=== PATIENT | male | born 1960 | race Caucasian/White ===

== ENCOUNTER 2017-02-19 16:03 | Outpatient (CLI) | payer BC ==
[2017-02-19 17:17] LABS: #Eosinphils 0.1 thou/uL (0.0-0.7); #Lymphocytes 2.1 thou/uL (1.20-3.40); #Monocytes 0.8 thou/uL (0.11-0.59); #Neutrophils 9.3 thou/uL (1.40-6.50); %Basophils 0.1 % (0.0-1.0); %Eosinophils 0.6 % (0.0-10.0); %Lymphocytes 16.9 % (21.0-51.0); %Monocytes 6.6 % (0.0-10.0); Hematocrit 55.6 % (42.0-52.0); Mean Platelet Volume 7.1 fL (7.4-10.4); Red Blood Cell (RBC) Count 6.13 mill/uL (4.70-6.10); White Blood Cell (WBC) Count 12.3 thou/uL (4.8-10.8)
[2017-02-19 17:39] LABS: Anion Gap 13 mmol/L (10-20); BUN (Urea Nitrogen) 12 mg/dL (8.4-25.7); Calc. Creatinine Clearance 0 mL/min (70-130); Calcium 9.5 mg/dL (7.8-10.44); Carbon Dioxide 23 mmol/L (22-29); Chloride 105 mmol/L (98-107); Estimated GFR-MDRD 63
== END 2017-02-19 16:04 | disposition home or self-care (01) ==
LOC: LABBT 16:03
PROVIDERS: ATTEND Surgery
DX: Z01.812 Encounter for preprocedural laboratory examination (principal); K42.9 Umbilical hernia without obstruction or gangrene
CPT/HCPCS: 80048; 85025

== ENCOUNTER → 2017-02-26 | Day surgery (SDC) | payer BC ==
[2017-02-19 16:22] VITALS: BMI 27.2
[~2017-02-26] MED LIST: Bupivacaine/Epinephrine 0.25% 30 ML VIAL ONE; CEFAZOLIN/Water 2 GM/20 ML SYRINGE ONE; Dexamethasone 20 MG/5 ML VIAL ONE; Fentanyl 100 MCG/2 ML VIAL ONE; Ketorolac Tromethamine 30 MG/ML VIAL ONE; Lidocaine 1% PF 5 ML VIAL ONE; Midazolam HCl 2 mg/2 ml Vial ONE; Ondansetron HCl/PF 4 MG/2 ML Vial ONE; PROPOFOL 200 MG/20 ML VIAL ONE
--- NOTE | 2017-02-27 13:26 | OP ---
DATE OF PROCEDURE: 02/26/2017 PREOPERATIVE DIAGNOSIS: Umbilical hernia. POSTOPERATIVE DIAGNOSIS: Umbilical hernia. PROCEDURES PERFORMED: Umbilical hernia repair with mesh, Parietex ventral patch small. SURGEON: Shon Mondragon M.D. ANESTHESIA: General. ESTIMATED BLOOD LOSS: Minimal. COMPLICATIONS: None. SPECIMEN: None. FINDINGS: Umbilical hernia. TECHNIQUE: The patient was taken to the operating room and placed supine on the table. After genera l anesthetic was obtained, the abdomen was shaved, prepped and draped in a sterile fashion. A curved incision was made below the umbilicus. Cautery was used to dissect down to and amputate the umbilic al stalk exposing the umbilical defect. The edges of the defect were freshened. The preperitoneal s pace was bluntly dissected through the umbilical defect. The Parietex small ventral patch mesh was b rought into the sterile field. The underlay was placed below the fascia and the tails were used to p ull it up flat against the posterior abdominal wall. This occurred on top, it was sewn via U stitch of permanent braided suture to all sides. The tails were then cut. The fascia was closed loosely ov er the mesh using permanent braided suture. Umbilical stalk was tacked back down using 3-0 Vicryl. Local anesthetic was applied and the wound was irrigated. Skin was closed with running 4-0 Monocryl and Dermabond. The patient went to recovery in stable condition. All instrument counts, needle coun ts, and lap counts were correct.
== END ==
LOC: SDC 08:32
PROVIDERS: ATTEND Surgery
PROC: 0WUF0JZ Supplement Abdominal Wall with Synthetic Substitute, Open Approach (ICD-10-PCS; principal; 2017-02-26)
DX: K42.9 Umbilical hernia without obstruction or gangrene (principal); I10 Essential (primary) hypertension; I48.0 Paroxysmal atrial fibrillation; E78.5 Hyperlipidemia, unspecified; I51.9 Heart disease, unspecified; Z79.01 Long term (current) use of anticoagulants; Z79.899 Other long term (current) drug therapy; Z98.52 Vasectomy status; Z90.89 Acquired absence of other organs; Z98.890 Other specified postprocedural states
CPT/HCPCS: J1100; J1885; J2001; J2250; J2405; J2704; J3010

== ENCOUNTER 2017-11-16 07:02 | Outpatient (CLI) | payer BC ==
--- NOTE | 2017-11-16 08:57 | CT ---
CT ABDOMEN WITH AND WITHOUT IV CONTRAST CT PELVIS WITH AND WITHOUT IV CONTRAST: DATE: 11/16/17. HISTORY: Hematuria, unspecified type. Difficulty urinating with weak flow of urination. COMPARISON: None available. FINDINGS: The lung bases are clear. Mild degenerative changes are seen in the spine with mild osteoarthritis involving the sacroiliac della nts. No renal or ureteral calculi are seen bilaterally. The kidneys demonstrate a normal CT appearance bi laterally aside from minimal defect in the inferior pole left kidney which may be related to minimal scarring. No enhancing renal mass is seen. There is no hydronephrosis present. The urinary bladder is decompressed but otherwise does appear to be within normal limits. The liver, spleen, pancreas, and bilateral adrenal glands demonstrate a normal CT appearance. Mild vascular calcifications are seen in the abdominal aorta and involving the iliac arteries. Incid ental note is made of a retroaortic left renal vein. The appendix is visualized and normal in caliber. There is colonic diverticulosis. There is no free fluid, fluid collection, or lymphadenopathy seen in the abdomen or pelvis. There is minimal scarring anterior abdomen at the level of the umbilicus. Metallic density is seen in the vi sualized upper scrotum incompletely imaged or evaluated that probably represents surgical clip second bailey to prior surgery. IMPRESSION: 1. No renal or ureteral calculi are seen bilaterally, and there is no hydronephrosis or renal mass s een. 2. Colonic diverticulosis. POS: [facility]
[2017-11-16] MEDS ORDERED: Iopamidol 370 76% 100 ML VIAL ONE (11:43)
== END 2017-11-16 07:03 | disposition home or self-care (01) ==
LOC: SCSCT 07:02
PROVIDERS: ATTEND Urology
DX: R31.9 Hematuria, unspecified (principal); K57.30 Diverticulosis of large intestine without perforation or abscess without bleeding
CPT/HCPCS: 74178

== ENCOUNTER 2017-11-18 16:54 | Outpatient (CLI) | payer BC ==
[2017-11-18 17:29] LABS: Hemoglobin 16.8 g/dL (14.0-18.0); Mean Corpuscular HGB CONC 34.1 g/dL (32.0-36.0); Mean Corpuscular Hemoglobin 31.3 pg (27.0-31.0); Mean Corpuscular Volume 91.8 fL (78.0-98.0); Mean Platelet Volume 6.8 fL (7.4-10.4); Platelet Count 257 thou/uL (130-400); RBC Distribution Width 12.5 % (11.5-14.5); Red Blood Cell (RBC) Count 5.36 mill/uL (4.70-6.10); White Blood Cell (WBC) Count 8.3 thou/uL (4.8-10.8)
[2017-11-18 17:53] LABS: Anion Gap 13 mmol/L (10-20); BUN (Urea Nitrogen) 15 mg/dL (8.4-25.7); Calc. Creatinine Clearance 0 mL/min (70-130); Calcium 9.2 mg/dL (7.8-10.44); Carbon Dioxide 25 mmol/L (22-29); Chloride 105 mmol/L (98-107); Estimated GFR-MDRD 70; Glucose 79 mg/dL (70-105); Sodium 139 mmol/L (136-145)
== END 2017-11-18 16:55 | disposition home or self-care (01) ==
LOC: LABBT 16:54
PROVIDERS: ATTEND Urology
DX: Z01.818 Encounter for other preprocedural examination (principal); R31.0 Gross hematuria; E29.1 Testicular hypofunction; R39.12 Poor urinary stream; R39.15 Urgency of urination; R35.1 Nocturia; N40.1 Benign prostatic hyperplasia with lower urinary tract symptoms
CPT/HCPCS: 80048; 85027; 93005; 93010

== ENCOUNTER 2017-11-24 09:20 | Day surgery (SDC) | payer BC ==
[2017-11-18 17:15] VITALS: BMI 27.9
[2017-11-24] MEDS ORDERED: Fentanyl 100 MCG/2 ML VIAL ONE (11:17)
[2017-11-24] MEDS ORDERED: Levofloxacin 500 mg/D5W 100 ml Premix Bag ONE (11:37)
--- NOTE | 2017-11-24 12:00 | RAD ---
PA AND LATERAL CHEST: INDICATIONS: Preop evaluation. COMPARISON: None. FINDINGS: The lungs are clear. The cardiomediastinal silhouette is within normal limits. No acute osseous abn ormality is evident. IMPRESSION: No acute cardiopulmonary abnormality. POS: [facility]
--- NOTE | 2017-11-24 13:01 | OP ---
DATE OF PROCEDURE: 11/24/2017 PREOPERATIVE DIAGNOSIS: Urethral strictures. POSTOPERATIVE DIAGNOSIS: Minimal urethral strictures. SURGEON: Lakesha Rey M.D. ANESTHESIA: General with laryngeal mask airway. FINDINGS: Adequate placement of a 21-Dominican cystoscope without the need for optical internal urethro jas. DRAINS: 18 Dominican silicone. ESTIMATED BLOOD LOSS: No blood loss. COMPLICATIONS: No complications. SPECIMENS: None. INDICATIONS: The patient is a 57-year-old male who was seen in the office and undergoing a workup fo r his BPH which has responded well to alpha blockers. We are anticipating considering GreenLight las er vaporization of the prostate and for that reason, the concern for prior hematuria he had a cystosc opy in the office, but I was unable to place the camera past the sphincter either due to a tight sphi ncter and/or another stricture, so he was set up for this in the OR. The patient was brought into the room by Anesthesia, laid on the table in supine position. After rec eiving general anesthetic his legs were placed in lithotomy position and his perineum was prepped and draped in sterile fashion. Using a 21-Dominican cystoscope and a 30 degree lens, the urethra was trave rsed and there were multiple small or slight strictures that the scope was able to push through. The re was one that brought a film with it, so I waited to pass this one until I could get a wire along t he edge of the mucosal film so that it would follow the original plane and the wire helped aid the sc ope in the correct direction and then it was at the sphincter itself and there was no definitive stri cture required. It was just narrow and the scope was able to push through it as the wire had already going into the bladder and I followed the wire into the bladder itself. Trabeculations were noted, but the bladder was otherwise without lesions. The ureteral orifices were noted in normal position. The prostate did have bilateral hypertrophy and a little bit of an elevated neck, but was otherwise unremarkable. At this point, the wire was left in place. The cystoscope removed and an 18 Dominican si licone catheter was turned into a Councill and catheter placed over the wire with the wire removed an d then secured to gravity. The patient tolerated procedure well and was then awakened and transferre d to PACU in stable condition.
[2017-11-24] MEDS ORDERED: Ondansetron HCl/PF 4 MG/2 ML Vial ONE (14:40)
[2017-11-24] MEDS ORDERED: Dexamethasone 20 MG/5 ML VIAL ONE (14:40)
[2017-11-24] MEDS ORDERED: PROPOFOL 200 MG/20 ML VIAL ONE (14:40)
[2017-11-24] MEDS ORDERED: Lidocaine 1% PF 5 ML VIAL ONE (14:40)
== END 2017-11-24 13:53 | disposition home or self-care (01) ==
LOC: SDC 09:20
PROVIDERS: ATTEND Urology
PROC: 0T7D8ZZ Dilation of Urethra, Via Natural or Artificial Opening Endoscopic (ICD-10-PCS; principal; 2017-11-24)
DX: N35.9 Urethral stricture, unspecified (principal); I48.91 Unspecified atrial fibrillation; E78.5 Hyperlipidemia, unspecified; I10 Essential (primary) hypertension; Z79.899 Other long term (current) drug therapy
CPT/HCPCS: 71046; C1769; J1100; J1956; J2001; J2405; J2704; J3010

== ENCOUNTER 2018-02-08 09:33 | Outpatient (CLI) | payer BC ==
[2018-02-08 10:05] LABS: #Basophils 0.1 thou/uL (0.0-0.2); #Eosinphils 0.1 thou/uL (0.0-0.7); #Lymphocytes 1.4 thou/uL (1.20-3.40); #Monocytes 0.6 thou/uL (0.11-0.59); #Neutrophils 7.7 thou/uL (1.40-6.50); %Basophils 0.6 % (0.0-1.0); %Eosinophils 1.2 % (0.0-10.0); %Monocytes 5.9 % (0.0-10.0); %Neutrophils 78.5 % (42.0-75.0); Hemoglobin 18.5 g/dL (14.0-18.0); Mean Corpuscular HGB CONC 33.3 g/dL (32.0-36.0); Mean Corpuscular Hemoglobin 30.8 pg (27.0-31.0); Mean Corpuscular Volume 92.4 fL (78.0-98.0); Mean Platelet Volume 6.7 fL (7.4-10.4); Platelet Count 272 thou/uL (130-400); RBC Distribution Width 12.8 % (11.5-14.5); White Blood Cell (WBC) Count 9.8 thou/uL (4.8-10.8)
[2018-02-08 10:26] LABS: Anion Gap 13 mmol/L (10-20); BUN (Urea Nitrogen) 12 mg/dL (8.4-25.7); Calc. Creatinine Clearance 0 mL/min (70-130); Calcium 9.6 mg/dL (7.8-10.44); Carbon Dioxide 25 mmol/L (22-29); Chloride 105 mmol/L (98-107); Estimated GFR-MDRD 74; Glucose 89 mg/dL (70-105); Potassium 4.6 mmol/L (3.5-5.1); Sodium 138 mmol/L (136-145)
--- NOTE | 2018-02-10 21:45 | EKG ---
Test Reason : Blood Pressure : / mmHG Vent. Rate : 088 BPM Atrial Rate : 088 BPM P-R Int : 154 ms QRS Dur : 074 ms QT Int : 346 ms P-R-T Axes : 065 061 007 degrees QTc Int : 418 ms Normal sinus rhythm Normal ECG When compared with ECG of 18-NOV-2017 17:07, No significant change was found Confirmed by Lanie PORRAS ([id number]) on 02/10/2018 9:44:44 PM Referred By: AUSTIN Confirmed By:Lanie PORRAS
== END 2018-02-08 09:34 | disposition home or self-care (01) ==
LOC: LABBT 09:33
PROVIDERS: ATTEND Urology
DX: Z01.818 Encounter for other preprocedural examination (principal); N40.0 Benign prostatic hyperplasia without lower urinary tract symptoms; E29.1 Testicular hypofunction; R35.1 Nocturia; R39.15 Urgency of urination; R31.0 Gross hematuria; R31.9 Hematuria, unspecified
CPT/HCPCS: 80048; 81001; 85025; 87086; 93005; 93010; G0103

== ENCOUNTER 2018-02-16 06:20 | Day surgery (SDC) | payer BC ==
[2018-02-08 09:57] VITALS: BMI 28.8
[2018-02-16] MEDS ORDERED: Levofloxacin 500 mg/D5W 100 ml Premix Bag ONE (06:41)
[2018-02-16] MEDS ORDERED: Dexamethasone 4 mg/ml Vial ONE (06:41)
[2018-02-16] MEDS ORDERED: Fentanyl 250 MCG/5 ML VIAL ONE (07:04)
[2018-02-16] MEDS ORDERED: B & O ONE (07:10)
[2018-02-16] MEDS ORDERED: Furosemide 20 MG/2 ML VIAL ONE (07:10)
[2018-02-16] MEDS ORDERED: Sodium Chloride 0.9% 10 ML ONE (09:47)
[2018-02-16] MEDS ORDERED: Promethazine HCl 25 MG/ML VIAL ONE (09:47)
[2018-02-16] MEDS ORDERED: PROPOFOL 200 MG/20 ML VIAL ONE (17:53)
[2018-02-16] MEDS ORDERED: Dexamethasone 20 MG/5 ML VIAL ONE (17:53)
[2018-02-16] MEDS ORDERED: Ondansetron PF 4 MG/2 ML Vial ONE (17:53)
--- NOTE | 2018-02-16 22:40 | OP ---
DATE OF PROCEDURE: 02/16/2018 PREOPERATIVE DIAGNOSIS: BPH. POSTOPERATIVE DIAGNOSIS: BPH. PROCEDURE PERFORMED: GreenLight laser vaporization of the prostate with 93,303 joules used. COMPLICATIONS: None, but the patient's whole urethra was significantly narrowed and could barely accommodate the 22.5-Korean cystoscope. SPECIMENS: Prostate. DRAIN REMAININ-Korean silicone catheter [place]. BLOOD LOSS: Minimal. INDICATIONS FOR PROCEDURE: The patient is a 57-year-old male who was followed in the office for lower urinary tract symptoms and initially had concern about stricture and he was taken to the operating room only to find that. A 21-Korean cystoscope was able to easily pass through the urethra and into the bladder. There was tightness at the sphincter, but no actual stricture. So, ultimately his symptoms were more related to BPH, so we set him up for GreenLight laser vaporization of prostate. DESCRIPTION OF PROCEDURE: The patient was brought into the room by Anesthesia, left on table in supine position. After achieving general anesthetic, the legs were placed in lithotomy position and the perineum was prepped and draped in a sterile fashion. Using a 22.5-Korean cystoscope and 30-degree lens, the urethra was traversed with difficulty. There was a flap that would require a wire so as not to further damage the mucosa, so a stiff wire was placed in the proper direction for pressing through with the scope itself and easily into the prostatic urethra and then bladder. Bladder neck was very high and elevated, but just moving the scope was difficult throughout the case from the standpoint of the urethra and meatus gripping. A power level of 80 was used at the middle lobe to bring this down, so that instead of angling up when you enter the prostatic urethra, you could see into the bladder so this was taken down with the power level of 80, but for the majority of the case, a power of 180 was only reserved for the mid gland and at the lateral lobes. The trigone was taken down to the floor as well as the midline. All tubes were ensured to be removed when the scope was removed. It was difficult to remove the scope just from the gripping from the urethra, but ultimately a good stream was noted and the scope was put back in carefully noticing the frayed components of the mucosa, and there was minimal to no bleeding noted at the prostatic urethra either when the bladder decompressed. So at this point, a stiff wire was left in place and a [place] catheter of 18-Korean silicone was placed over the wire with some difficulty just from the urethra itself not accommodating a larger size. So once the catheter was placed, there was only minimal amount of blood around the catheter and no blood has returned from the bladder itself as this was clear like water. The catheter was secured and the patient was then awakened and transferred to the PACU in stable condition. Job ID: [id number] MTDD
== END 2018-02-16 11:18 | disposition home or self-care (01) ==
LOC: SDC 06:20
PROVIDERS: ATTEND Urology
PROC: 0V508ZZ Destruction of Prostate, Via Natural or Artificial Opening Endoscopic (ICD-10-PCS; principal; 2018-02-16)
DX: N40.1 Benign prostatic hyperplasia with lower urinary tract symptoms (principal); R35.0 Frequency of micturition; R35.1 Nocturia; R39.12 Poor urinary stream; R39.15 Urgency of urination; R31.0 Gross hematuria; I10 Essential (primary) hypertension; I48.0 Paroxysmal atrial fibrillation; E29.1 Testicular hypofunction; Z79.899 Other long term (current) drug therapy
CPT/HCPCS: 88305; 96374; J1100; J1940; J1956; J2405; J2550; J2704; J3010

== ENCOUNTER 2018-08-16 09:38 | Observation (INO) | payer BC ==
[2018-08-16 10:14] LABS: #Basophils 0.1 thou/uL (0.0-0.2); #Lymphocytes 1.3 thou/uL (1.20-3.40); #Monocytes 0.6 thou/uL (0.11-0.59); #Neutrophils 8.9 thou/uL (1.40-6.50); %Basophils 0.9 % (0.0-1.0); %Eosinophils 0.3 % (0.0-10.0); %Lymphocytes 11.6 % (21.0-51.0); %Monocytes 5.7 % (0.0-10.0); %Neutrophils 81.6 % (42.0-75.0); Hemoglobin 18.5 g/dL (14.0-18.0); Mean Corpuscular HGB CONC 33.5 g/dL (32.0-36.0); Mean Corpuscular Hemoglobin 30.6 pg (27.0-31.0); Mean Corpuscular Volume 91.4 fL (78.0-98.0); Mean Platelet Volume 6.6 fL (7.4-10.4); Platelet Count 267 thou/uL (130-400); RBC Distribution Width 13.1 % (11.5-14.5); Red Blood Cell (RBC) Count 6.04 mill/uL (4.70-6.10); White Blood Cell (WBC) Count 10.9 thou/uL (4.8-10.8)
[2018-08-16] MEDS ORDERED: Metoprolol Tartrate 5 MG/5 ML VIAL ONE ×3 (10:17→11:04)
[2018-08-16 10:27] LABS: ALT (SGPT) 27 U/L (8-55); AST (SGOT) 17 U/L (5-34); Alkaline Phosphatase 78 U/L (40-150); Anion Gap 14 mmol/L (10-20); BUN (Urea Nitrogen) 16 mg/dL (8.4-25.7); Bilirubin, Total 0.7 mg/dL (0.2-1.2); CK (CPK) 58 U/L (30-200); Calc. Creatinine Clearance 0 mL/min (70-130); Calcium 9.5 mg/dL (7.8-10.44); Carbon Dioxide 22 mmol/L (22-29); Chloride 107 mmol/L (98-107); Estimated GFR-MDRD 76; Globulin 2.9 g/dL (2.4-3.5); Glucose 84 mg/dL (70-105); Potassium 4.4 mmol/L (3.5-5.1); Protein, Total 6.9 g/dL (6.0-8.3); Sodium 139 mmol/L (136-145)
--- NOTE | 2018-08-16 10:30 | RAD ---
Portable frontal chest radiograph: 08/16/2018 COMPARISON: 11/24/2017 HISTORY: Chest pain, history of atrial fibrillation with rapid ventricular rate FINDINGS: Lungs are clear. Heart and mediastinal contours appear within normal limits. IMPRESSION: No acute findings.
[2018-08-16] MEDS ORDERED: Ondansetron PF 4 MG/2 ML Vial IVP PRN (11:00)
[2018-08-16] MEDS ORDERED: Acetaminophen 325 MG TAB PO PRN (11:00)
[2018-08-16] MEDS ORDERED: Ondansetron ODT 4 MG TAB SL PRN (11:00)
[2018-08-16 12:53] VITALS: BMI 30.1
[2018-08-16] MEDS ORDERED: TESTOSTERONE IL SCH (13:15)
[2018-08-16 13:39] LABS: Troponin I Less than 0.010 ng/mL (< 0.028)
--- NOTE | 2018-08-16 14:12 | HP ---
PRIMARY CARE PROVIDER: Dr. Manuel Rosenberg. HISTORY OF PRESENT ILLNESS: The patient awoke at 0230 hours this morning with palpitations similar to his old atrial fibrillation. At 0630 hours, he noted some pressure in his left chest with numbness and tingling in his left arm. He felt a little dizzy with a little blurry vision with that. Some minimal nausea. No sweats. PAST MEDICAL HISTORY: Hypertension, elevated cholesterol, history of atrial fibrillation post ablation x2. CURRENT MEDICATIONS: 1. Aspirin 81 mg a day. 2. Atorvastatin 20 mg a day. 3. Fosinopril one tablet a morning. 4. Metoprolol 25 mg twice a day. 5. 75 mg testosterone pellet as directed every 4 to 6 months. ALLERGIES: NONE. PAST SURGICAL HISTORY: Umbilical hernia repair "GreenLight vaporization" of prostate in 2018. FAMILY HISTORY: Father with heart failure and atrial fibrillation. He is . Full code status. , next of kin and power of real estate associate attorney, none. Tobacco user. Occasional alcohol. REVIEW OF SYSTEMS: GENERAL: Dizziness, but with no fainting. EYES: He had some development of tunnel vision with dizziness. No double vision or flashing lights. EAR, NOSE, AND THROAT: No ear pain or drainage. No nasal bleeding. No trouble swallowing. CARDIAC: See present illness. RESPIRATION: No cough, wheezing, or asthma. GASTROINTESTINAL: No nausea, vomiting, diarrhea, or constipation. GENITOURINARY: No hematuria or dysuria. MUSCULOSKELETAL: No pain or swelling in his arms or legs. NEUROLOGIC: No strokes, seizures, or focal weakness. PSYCHIATRIC: No anxiety or depression. SKIN: No bruising, bleeding, or rash. HEME/LYMPH NODE: No tender or swollen lymph nodes in axilla, inguinal, cervical area. His initial pulse in the emergency room was 186 with 162/108 blood pressure. The patient spontaneously converted to sinus rhythm. PHYSICAL EXAMINATION: VITAL SIGNS: Blood pressure now 112/83, pulse 77, respirations are about 16 to 18. HEAD, EYES, EARS, NOSE, AND THROAT: Revealed pupils are equal, round, and reactive to light. Extraocular movements are intact. Sclerae are white. Tympanic membranes clear. Nose clear. Throat is clear. NECK: Supple without jugular venous distention, adenopathy, or thyromegaly. CHEST: Clear to auscultation and percussion. HEART: Regular rate and rhythm. First second heart sounds are clear. There are no murmurs or gallops. ABDOMEN: Soft. Bowel sounds are normal. No hepatosplenomegaly. No mass. No rebound. No bruits. EXTREMITIES: Reveal no cyanosis, clubbing, or edema. PULSES: Carotid, radial, femoral, and dorsalis pedis pulses intact. SKIN: Warm and dry without bruises or rash. HEME/LYMPH: No tender or swollen lymph nodes in the axilla, inguinal, cervical area. NEUROLOGIC: Cranial nerves 2 through 12. Deep tendon reflexes symmetric. IMAGING STUDIES: Chest x-ray, no cardiomegaly, CHF, or infiltrate reviewed by me. EKG, atrial fibrillation, rapid ventricular response, nonspecific ST-T abnormality reviewed by me. The patient has returned to regular sinus rhythm. Followup EKG is pending. Hemoglobin was 18.5, white cell count 10.9, platelet count 267,000. Comprehensive metabolic profile normal. Troponin 0.01. ADMITTING DIAGNOSES: 1. Atrial fibrillation with rapid ventricular response, spontaneously resolved. 2. Chest pain. 3. Hypertension. 4. Elevated cholesterol. PLAN: Aspirin has been given. Serial enzymes, then a treadmill stress test. I have attempted to contact Dr. Thomas unsuccessfully. We will attempt again later. Job ID: [id number]
[2018-08-16 16:47] LABS: Troponin I Less than 0.010 ng/mL (< 0.028)
[2018-08-16] MEDS ORDERED: Metoprolol Tartrate 25 MG TAB PO SCH (21:00)
[2018-08-16] MEDS: Metoprolol Tartrate 25 MG TAB PO SCH (21:31)
[2018-08-17] MEDS: Atorvastatin Calcium 20 MG TAB PO SCH (09:32)
[2018-08-17] MEDS: Aspirin 81 mg Enteric Coated Tablet PO SCH (09:32)
[2018-08-17] MEDS: Metoprolol Tartrate 25 MG TAB PO SCH ×2 (09:33→21:24)
--- NOTE | 2018-08-17 11:00 | NM ---
NM Cardiac Stress W EF WF History: Chest pain Comparison: None. Findings: Stress and rest performed after the intravenous ministration of 33 and 31 mCi technetium 99 m sestamibi. Adequate left ventricular uptake of radiotracer. No scar or ischemia. Normal wall motion. Ejection fr action calculated at 74%. Impression: Normal nuclear medicine cardiac stress test and ejection fraction.
[2018-08-17] MEDS ORDERED: Enoxaparin Sodium 80 MG/0.8 ML SYRINGE SC SCH ×3 (12:00→22:00)
--- NOTE | 2018-08-17 12:01 | PDOC.CTH ---
Cardiology Progress Note - Subjective EP PROGRESS NOTE: Follow up for atrial arrhythmias. Feels well today. Denies heart racing, palpitations, chest pain, pressure, dizziness, or passing out. No bleeding issues. - Objective Vital Signs Temp Pulse Resp BP Pulse Ox 08/17/18 07:34 98.6 F 85 18 131/84 95 08/17/18 04:00 97.4 F L 78 16 112/74 98 08/17/18 00:00 98.1 F 82 16 116/73 96 Weight 209 lb 14.4 oz 08/16/18 08/17/18 08/18/18 06:59 06:59 06:59 Intake Total 50 Balance 50 - Physical Examination General/Neuro: alert & oriented x3, NAD Neck: carotid US brisk, no JVD present Lungs: CTA, unlabored respirations Heart: PMI normal, RRR Abdomen: NT/ND, soft - Telemetry Telemetry Rhythm: SR - Labs Result Diagrams: 08/16/18 09:54 08/16/18 09:54 Troponin/CKMB Troponin I Less than 0.010 ng/mL (< 0.028) 08/16/18 16:10 - Assessment/Plan 1. Atrial flutter, atypical with RVR - late recurrence s/p remote ablation 12/2011 - currently in SR - NPO after MN for redo PVAI tomorrow afternoon with Dr Thomas - [employer] normal on 08/17 - echo ordered to be completed prior to PVAI - consider Flecainide 50mg PO BID if AAD therapy is needed in the future. 2. CHADS2-VASC: 1 (HTN) - will DC on Xarelto 20mg PO QD post ablation - two doses of lovenox ordered in the interim. No lovenox or OAC tomorrow AM
[2018-08-17 12:49] LABS: #Eosinphils 0.1 thou/uL (0.0-0.7); #Lymphocytes 1.4 thou/uL (1.20-3.40); #Monocytes 0.5 thou/uL (0.11-0.59); #Neutrophils 7.2 thou/uL (1.40-6.50); %Basophils 0.4 % (0.0-1.0); %Eosinophils 0.8 % (0.0-10.0); %Lymphocytes 14.8 % (21.0-51.0); %Monocytes 5.8 % (0.0-10.0); %Neutrophils 78.2 % (42.0-75.0); Hemoglobin 17.1 g/dL (14.0-18.0); Mean Corpuscular HGB CONC 33.4 g/dL (32.0-36.0); Mean Corpuscular Hemoglobin 31.3 pg (27.0-31.0); Mean Corpuscular Volume 93.7 fL (78.0-98.0); Mean Platelet Volume 6.5 fL (7.4-10.4); Platelet Count 268 thou/uL (130-400); RBC Distribution Width 13.1 % (11.5-14.5); Red Blood Cell (RBC) Count 5.47 mill/uL (4.70-6.10); White Blood Cell (WBC) Count 9.3 thou/uL (4.8-10.8)
[2018-08-17 13:15] LABS: Anion Gap 11 mmol/L (10-20); BUN (Urea Nitrogen) 16 mg/dL (8.4-25.7); Calc. Creatinine Clearance 100 mL/min (70-130); Carbon Dioxide 28 mmol/L (22-29); Chloride 102 mmol/L (98-107); Estimated GFR-MDRD 70; Glucose 113 mg/dL (70-105); Potassium 4.3 mmol/L (3.5-5.1); Sodium 137 mmol/L (136-145)
--- NOTE | 2018-08-17 17:28 | PDOC.PN ---
- Subjective Encounter Start Date: 08/17/18 Encounter Start Time: 08:00 Pt seen for followup re: chest pain. Feels better. - Objective Resuscitation Status - Order Detail: 08/16/18 13:14 Resuscitation Status Routine Resuscitation Status: FULL: Full Resuscitation MAR Reviewed: Yes Vital Signs & Weight: Vital Signs (12 hours) Temp Pulse Resp BP Pulse Ox 08/17/18 15:40 98.8 F 95 18 140/93 H 95 08/17/18 11:04 98.7 F 101 H 17 140/83 98 08/17/18 07:34 98.6 F 85 18 131/84 95 Weight Weight 209 lb 14.4 oz I&O: 08/16/18 08/17/18 08/18/18 06:59 06:59 06:59 Intake Total 50 Balance 50 Result Diagrams: 08/17/18 12:43 08/17/18 12:43 EKG Reviewed by me: Yes (Tele: NSR) Phys Exam - Physical Examination Obese HEENT: moist MMs Neck: supple Respiratory: clear to auscultation bilateral Cardiovascular: RRR Gastrointestinal: soft Neurological: moves all 4 limbs Psychiatric: normal affect Dx/Plan (1) Chest pain Code(s): R07.9 - CHEST PAIN, UNSPECIFIED Status: Acute Comment: Pt to have stress test (2) Dyslipidemia Code(s): E78.5 - HYPERLIPIDEMIA, UNSPECIFIED Status: Chronic Comment: continue atorvastatin (3) HTN (hypertension) Code(s): I10 - ESSENTIAL (PRIMARY) HYPERTENSION Status: Chronic Comment: controlled (4) Atrial fibrillation with RVR Code(s): I48.91 - UNSPECIFIED ATRIAL FIBRILLATION Status: Resolved - Plan * . Pt to have ablation tomorrow Review of Systems - Review of Systems Cardiovascular: negative: chest pain, palpitations, orthopnea, paroxysmal nocturnal dyspnea, edema, light headedness Gastrointestinal: negative: Nausea, Vomiting, Abdominal Pain, Diarrhea, Constipation, Melena, Hematochezia - Medications/Allergies Allergies/Adverse Reactions: Allergies Allergy/AdvReac Type Severity Reaction Status Date / Time No Known Allergies Allergy Verified 02/08/18 09:57 Medications: Current Medications Aspirin (Ecotrin) 81 mg PO [facility] Last Admin: 08/17/18 09:32 Dose: Not Given Atorvastatin Calcium (Lipitor) 20 mg PO [facility] Last Admin: 08/17/18 09:32 Dose: Not Given Enoxaparin Sodium (Lovenox) 80 mg SC ONE [facility] Stop: 08/17/18 23:00 Fosinopril Sodium (Monopril) 10 mg PO QAM [facility] Last Admin: 08/17/18 09:32 Dose: Not Given Metoprolol Tartrate (Lopressor) 25 mg PO BID [facility] Last Admin: 08/17/18 09:33 Dose: Not Given Non-Formulary Medication (Testosterone [Testopel]) 75 mg [place] [facility]
[2018-08-18] MEDS: Atorvastatin Calcium 20 MG TAB PO SCH (08:19)
[2018-08-18] MEDS: Metoprolol Tartrate 25 MG TAB PO SCH ×2 (08:20→20:53)
[2018-08-18] MEDS: Aspirin 81 mg Enteric Coated Tablet PO SCH (08:20)
[2018-08-18] MEDS ORDERED: Heparin 10,000 UNITS/1 ML VIAL ONE ×3 (14:50→16:18)
[2018-08-18] MEDS ORDERED: Fentanyl 100 MCG/2 ML VIAL ONE ×2 (15:00→15:58)
[2018-08-18] MEDS ORDERED: Glycopyrrolate 0.2 MG/ML 5 ML SYRINGE ONE (15:47)
[2018-08-18] MEDS ORDERED: PROPOFOL 200 MG/20 ML VIAL ONE (15:47)
[2018-08-18] MEDS ORDERED: Rocuronium Bromide 10 MG/ML (10ML VIAL) ONE (15:47)
[2018-08-18] MEDS ORDERED: Lidocaine 2% PF 5 ML VIAL ONE (15:47)
[2018-08-18] MEDS ORDERED: Heparin 30,000 units/30 ml VIAL ONE (15:47)
[2018-08-18] MEDS ORDERED: Dexamethasone 20 MG/5 ML VIAL ONE (15:47)
[2018-08-18] MEDS ORDERED: Heparin 25,000 units/D5W 500 ML ONE (15:52)
[2018-08-18] MEDS ORDERED: Isoproterenol 0.2 MG/1 ML AMP ONE (16:17)
[2018-08-18] MEDS ORDERED: Protamine Sulfate 50 MG/5 ML VIAL ONE (17:43)
[2018-08-18] MEDS ORDERED: Ondansetron HCl/PF 4 MG/2 ML Vial IVP PRN (18:09)
[2018-08-18] MEDS ORDERED: PACU-Morphine 4MG/ML VIAL SLOW IVP PRN (18:09)
[2018-08-18] MEDS ORDERED: Promethazine HCl 25 MG/ML VIAL SLOW IVP PRN (18:09)
[2018-08-18] MEDS ORDERED: HYDROmorphone 2 MG/ML VIAL SLOW IVP PRN (18:09)
[2018-08-18] MEDS ORDERED: Promethazine HCl 25 MG/ML VIAL IM PRN (18:09)
[2018-08-18] MEDS ORDERED: Ketorolac Tromethamine 30 MG/ML VIAL IVP PRN (18:34)
[2018-08-18] MEDS ORDERED: Acetaminophen/Codeine 30-300mg Tablet PO PRN ×2 (18:45)
[2018-08-18] MEDS ORDERED: Ondansetron PF 4 MG/2 ML Vial IVP PRN (19:43)
[2018-08-18] MEDS ORDERED: Rivaroxaban 10 MG TAB PO SCH (21:00)
[2018-08-18] MEDS ORDERED: Acetaminophen 325 MG TAB PO PRN (22:54)
[2018-08-19 08:00] VITALS: BP 128/76; TEMP 98
--- NOTE | 2018-08-19 08:35 | PDOC.CTH ---
Cardiology Progress Note - Subjective EP PROGRESS NOTE: 08/19/18 Follow up for atrial arrhythmias. Feels well today after his ablation yesterday. Denies heart racing, palpitations, chest pain, pressure, dizziness, or passing out. No bleeding issues. Tolerating PO intake, ambulating well. minor sore throat after intubation. No complaints. - Objective Vital Signs Temp Pulse Resp BP BP Pulse Ox 08/19/18 07:33 98.0 F 107 H 16 128/76 95 08/19/18 05:30 87 18 116/72 95 08/18/18 23:11 97.8 F 95 16 128/82 95 Weight 209 lb 14.4 oz 08/18/18 08/19/18 08/20/18 06:59 06:59 06:59 Intake Total 1280 Balance 1280 - Physical Examination General/Neuro: alert & oriented x3, NAD Neck: carotid US brisk, no JVD present Lungs: CTA, unlabored respirations Heart: PMI normal, RRR Abdomen: NT/ND, soft Other PE findings: BL groin sites stable - Telemetry Telemetry Rhythm: SR - Labs Result Diagrams: 08/17/18 12:43 08/17/18 12:43 Troponin/CKMB Troponin I Less than 0.010 ng/mL (< 0.028) 08/16/18 16:10 - Assessment/Plan 1. Atrial flutter, atypical with RVR - currently in SR - s/p redo PVAI 08/18/18 - [employer] normal on 08/17 - consider Flecainide 50mg PO BID if AAD therapy is needed in the future. 2. CHADS2-VASC: 1 (HTN) - will DC on Xarelto 20mg PO QD post ablation continue at least 3 months post ablation. Then can likely transition to 81mg ASA with chads score of 1\ -rx provided. Will stop by clinic for samples upon discharge to get him started. OK for DC by EP. Has follow up appt in september scheduled already. RN to provide TCA post ablation DC instruction packet RX on chart for: protonix 40mg PO QD x 30 days carafate 1 gram QID x 14 days Lasix 40mg PRN QD KCl 20mEq PO with lasix Xarelto 20mg QD
--- NOTE | 2018-08-19 08:37 | CON ---
DATE OF CONSULTATION: 08/16/2018 REASON FOR CONSULTATION: Atypical atrial flutter. HISTORY OF PRESENT ILLNESS: Mr. Adams is a pleasant 57-year-old gentleman with a history of paroxysmal atrial fibrillation as well as typical atrial flutter. He underwent electrophysiology study and cavotricuspid isthmus modification ablation with Dr. Thomas in December 2016. At that point, he was found to also have left atrial arrhythmias, of note, atypical left atrial flutter. At that time, flecainide was discontinued and we monitored for recurrence of these arrhythmias, but have not seen them until this hospitalization. He has a low CHADS-VASc score of 1 for history of hypertension, has been on aspirin 81 mg daily after short course of Xarelto following his right atrial flutter ablation. He would occasionally have heart racing and palpitations largely nonsustained and not bothersome, but on earlier this morning at 0230 hours, he woke up palpitations with left chest numbness and tingling in his left arm that was consistent with his presentation of atrial flutter in the past. He went to the emergency room and was found to be in atrial flutter with RVR and was admitted for further evaluation. PAST MEDICAL HISTORY: 1. Atrial fibrillation and atypical atrial flutter. 2. Typical atrial flutter, status post CTI ablation on 10/16/2016. 3. Hypertension. 4. Hyperlipidemia. REVIEW OF SYSTEMS: A 12-point review of systems was conducted, is negative except that listed above in HPI. HOME MEDICATIONS: 1. Testosterone as directed. 2. Aspirin 81 mg daily. 3. Metoprolol tartrate 25 mg p.o. b.i.d. 4. Monopril 10 mg q.a.m. 5. Atorvastatin 20 mg q.a.m. ALLERGIES: NO KNOWN DRUG ALLERGIES. FAMILY HISTORY: Negative for sudden cardiac or early-onset coronary artery disease. SOCIAL HISTORY: Denies alcohol, tobacco, or illicit drug use. Positive for high caffeine intake. PHYSICAL EXAMINATION: VITAL SIGNS: Temperature 98.3, pulse 96, blood pressure 131/79, respirations 20 , and oxygen is 96% on room air. GENERAL: The patient is alert and oriented. Speech is clear. Affect is appropriate. NEUROLOGIC: Grossly intact and nonfocal. Gait was not assessed. NECK: Supple without jugular venous distention. HEART: Rate is currently regularly regular with crisp S1 and S2. PMI is nondisplaced. LUNGS: Clear to auscultation bilaterally. RESPIRATIONS: Even and nonlabored. ABDOMEN: Soft and nontender without palpable masses. Hepatojugular reflux is negative. EXTREMITIES: Warm and dry. Well perfused without clubbing, cyanosis, or edema. DATABASE: EKG and telemetry are reviewed, showing atrial fibrillation/atypical atrial flutter with RVR, currently in sinus rhythm. LABORATORY DATA: Hematology was reviewed. Chemistry was reviewed; potassium 4.3, creatinine 1.08. Liver enzymes are within normal limits. Troponins were negative. IMPRESSION: 1. Atrial fibrillation/atypical atrial flutter with rapid ventricular response. 2. History of typical atrial flutter, status post CTI ablation in October 2016. 3. CHADS-VASc score of 1 on the basis of hypertension. 4. Hyperlipidemia. RECOMMENDATIONS: Mr. Adams is experiencing recurrence of atrial fibrillation and atypical atrial flutter. We discussed treatment options including antiarrhythmic therapy, rate control alone and/or ablation. Both would be reasonable, abeit he is leaning towards ablation therapy. He has been on flecainide in the past, but his coronary artery status is unknown. I recommend a stress test before resuming flecainide. We also discussed the possibility of an ablation either as an inpatient this hospitalization or in the near future as an outpatient pending his this schedule availability. We will consider his options. We will proceed with stress test tomorrow. Job ID: [id number] MTDD
[2018-08-19] MEDS: Metoprolol Tartrate 25 MG TAB PO SCH (09:03)
[2018-08-19] MEDS: Atorvastatin Calcium 20 MG TAB PO SCH (09:03)
[2018-08-19] MEDS: Aspirin 81 mg Enteric Coated Tablet PO SCH (09:04)
--- NOTE | 2018-08-19 09:31 | OP ---
DATE OF PROCEDURE: 08/18/2018 PROCEDURES PERFORMED: Electrophysiology study and radiofrequency ablation. REASON FOR PROCEDURE: Mr. Adams is a 57-year-old man with prior history of recurrent atrial arrhythmias. He had prior atrial flutter ablation, but subsequent atrial fibrillation prompted the pulmonary venous isolation procedure last year. He now was admitted with recurrent sustained rapid atrial flutter episodes. He though spontaneously cardioverted. We discussed options of antiarrhythmic agents, but at this point he preferred re-ablation. The patient received Lovenox prior to the procedure the preceding day and was still in sinus rhythm. A 2D echo prior to the procedure did demonstrate small amount of effusion in the pericardial space without hemodynamic significance. DESCRIPTION OF PROCEDURE: The patient received propofol and general anesthesia by Anesthesia specialist. Throughout the case, an esophageal temperature probe was used to monitor the temperature and need to meticulously avoid excessive heating with ablation. The left and right femoral vein was prepped, draped, anesthetized using subcutaneous lidocaine. On the left femoral venous side, an 11-Albanian sheath was used to advance intracardiac echocardiogram probe to the right atrium, which was used to monitor the transeptal procedure as well as the change in the pericardial space or effusion. Also on the left side, a Preface sheath was used to advance a DuoDeca catheter into the right atrium, coronary sinus and pacing mapping recording was obtained in each location. Following that, on the right side, two SL1 sheaths were used through which a ThermoCool SFST catheter was initially advanced to the right atrium and 3D map of the right atrium, His bundle, coronary sinus, and the right atrium was obtained. Following that, the 2nd transseptal sheath on the ultrasound monitoring, transseptal puncture was performed. IV heparin was administered at this time with bolus and drip fashion which was periodically checked with ACT levels and adjusted to keep ACT over 350. Following that, through the SL1 sheath was withdrawn after wiring the left pulmonary vein and through the created transseptal opening, 2nd transseptal sheath was placed in the left atrium with the ThermoCool SFST catheter. Following that, the first SL1 sheath was again reintroduced through the left atrium over the wire and the wire was removed. Through this SL1 sheath, a 20-pole Lasso catheter was advanced to the left atrium and 3D map of the left atrium was obtained. It appeared that the right superior and left inferior pulmonary veins were adequately isolated. Some reconnection of the right inferior and left superior pulmonary veins were seen. The posterior wall appeared to be not isolated. Following that, radiofrequency ablation was performed in the right pulmonary vein's inferior area and was easily isolated. Also left superior pulmonary vein was easily isolated. A superior roof line was drawn and also an inferior line was drawn between the left and right pulmonary venous sites creating a posterior wall isolation. Isuprel was administered at this point at 20 mcg and reconnections were re-ablated. Following that, basic EP study was obtained with the following findings. Baseline cycle length is 234 milliseconds, ND 166, QRS 65, QT 375, AH 67, HV 56 milliseconds. The AV Wenckebach cycle length was 250 milliseconds. Retrograde Wenckebach cycle length was 400 milliseconds. Concentric retrograde VA conduction was seen. Burst atrial pacing did not induce any atrial flutter or any other SVT. The total number of lesions placed were 37 at 40 cornejo. Total duration of the ablation was 20 minutes and 29 seconds. LV pacing was performed, also demonstrating no evidence of accessory pathway. At the end of the case, heparin was reversed with protamine after the catheters and sheaths were withdrawn. The venous access sites were closed with Vascade closure device on all four locations. CONCLUSION: 1. Successful pulmonary venous and posterior wall isolation procedure. 2. No inducible atrial arrhythmias at end of the case. 3. Baseline mild pericardial effusion has not changed with procedure and the patient remained hemodynamically stable. 4. No evidence of accessory pathway or inducible SVT is demonstrated. PLAN: Resume oral anticoagulation and routine monitoring for recurrent atrial arrhythmias. Job ID: [id number]
--- NOTE | 2018-08-19 16:06 | PDOC.PN ---
- Subjective Encounter Start Date: 08/18/18 Encounter Start Time: 10:00 Subjective: no chest pain or palp -: at bedside - Objective Resuscitation Status - Order Detail: 08/16/18 13:14 Resuscitation Status Routine Resuscitation Status: FULL: Full Resuscitation MAR Reviewed: Yes Vital Signs & Weight: Vital Signs (12 hours) Temp Pulse Resp BP BP Pulse Ox 08/19/18 07:33 98.0 F 107 H 16 128/76 95 08/19/18 05:30 87 18 116/72 95 Weight Weight 209 lb 14.4 oz I&O: 08/18/18 08/19/18 08/20/18 06:59 06:59 06:59 Intake Total 1280 Balance 1280 Result Diagrams: 08/17/18 12:43 08/17/18 12:43 Phys Exam - Physical Examination HEENT: PERRLA, moist MMs Neck: no JVD, supple Respiratory: no wheezing, no rales Cardiovascular: RRR, no significant murmur Gastrointestinal: soft, non-tender, positive bowel sounds Musculoskeletal: no edema, pulses present Neurological: non-focal, moves all 4 limbs Psychiatric: normal affect, A&O x 3 Dx/Plan (1) Chest pain Code(s): R07.9 - CHEST PAIN, UNSPECIFIED Status: Acute Comment: Pt to have stress test (2) Dyslipidemia Code(s): E78.5 - HYPERLIPIDEMIA, UNSPECIFIED Status: Chronic Comment: continue atorvastatin (3) HTN (hypertension) Code(s): I10 - ESSENTIAL (PRIMARY) HYPERTENSION Status: Chronic Qualifiers: Hypertension type: essential hypertension Qualified Code(s): I10 - Essential (primary) hypertension Comment: controlled (4) Atrial fibrillation with RVR Code(s): I48.91 - UNSPECIFIED ATRIAL FIBRILLATION Status: Resolved - Plan in sinus rhythm -: await stress test, for EP studies in am -: d/w -: continue asp, lopressor, fosinopril and lipitor * .
--- NOTE | 2018-08-19 16:08 | PDOC.PN ---
- Subjective Encounter Start Date: 08/19/18 Encounter Start Time: 09:00 Subjective: no chest pain or palp -: feels good, is amb in hallway -: at bedside - Objective Resuscitation Status - Order Detail: 08/16/18 13:14 Resuscitation Status Routine Resuscitation Status: FULL: Full Resuscitation MAR Reviewed: Yes Vital Signs & Weight: Vital Signs (12 hours) Temp Pulse Resp BP BP Pulse Ox 08/19/18 07:33 98.0 F 107 H 16 128/76 95 08/19/18 05:30 87 18 116/72 95 Weight Weight 209 lb 14.4 oz I&O: 08/18/18 08/19/18 08/20/18 06:59 06:59 06:59 Intake Total 1280 Balance 1280 Result Diagrams: 08/17/18 12:43 08/17/18 12:43 Phys Exam - Physical Examination HEENT: PERRLA, moist MMs Neck: no JVD, supple Respiratory: no wheezing, no rales Cardiovascular: RRR, no significant murmur Gastrointestinal: soft, non-tender, positive bowel sounds Musculoskeletal: no edema, pulses present Neurological: non-focal, moves all 4 limbs Psychiatric: normal affect, A&O x 3 Dx/Plan (1) Chest pain Code(s): R07.9 - CHEST PAIN, UNSPECIFIED Status: Resolved Qualifiers: Chest pain type: unspecified Qualified Code(s): R07.9 - Chest pain, unspecified (2) Dyslipidemia Code(s): E78.5 - HYPERLIPIDEMIA, UNSPECIFIED Status: Chronic Comment: continue atorvastatin (3) HTN (hypertension) Code(s): I10 - ESSENTIAL (PRIMARY) HYPERTENSION Status: Chronic Qualifiers: Hypertension type: essential hypertension Qualified Code(s): I10 - Essential (primary) hypertension Comment: controlled (4) Atrial fibrillation with RVR Code(s): I48.91 - UNSPECIFIED ATRIAL FIBRILLATION Status: Resolved - Plan stress test is -ve for reversible ischemia -: had pulm vein isolation and EP studies last evening -: no inducible rhythm or accessory pathway was seen -: is cleared for dc by -: to continue lopressor, fosinopril, lipitor, xarelto * .
--- NOTE | 2018-08-19 16:25 | DIS ---
DATE OF ADMISSION: 08/16/2018 DATE OF DISCHARGE: 08/19/2018 DISCHARGE DISPOSITION: Home. PRIMARY DISCHARGE DIAGNOSES: Chest pain, noncardiac; atrial fibrillation/atrial flutter on admission, status post ablation. SECONDARY DISCHARGE DIAGNOSES: Hypertension, dyslipidemia, prior history of ablation for atrial fibrillation. PROCEDURES DONE DURING HOSPITALIZATION: Chest x-ray done showed no acute findings. Nuclear stress test done showed normal nuclear medicine cardiac stress test and ejection fraction. Ejection fraction was calculated at 74%. There was no scar or ischemia. Normal wall motion was seen on the stress test. The patient had EP studies with radiofrequency ablation done on 08/18/[address] Thomas. He had successful pulmonary venous and posterior wall isolation procedure. No inducible atrial arrhythmias at the end of the procedure. No evidence of accessory pathway or inducible SVT was demonstrated. H and H 17 and 51, platelet count 268, MCV 93, BUN 16, creatinine 1.0. Troponin x3 negative. DISCHARGE MEDICATIONS: 1. Aspirin 81 mg p.o. daily. 2. Lipitor 20 mg p.o. q.a.m. 3. Fosinopril 10 mg p.o. q.a.m. 4. Lopressor 25 mg p.o. twice daily. 5. Xarelto 20 mg p.o. at bedtime. ALLERGIES: NO KNOWN DRUG ALLERGIES. INPATIENT CONSULT: Dr. Jose Ramon Thomas for electrophysiology. DISCHARGE PLAN: The patient to follow up with Dr. Jose Ramon Thomas as advised and primary care physician in 1 week. BRIEF COURSE DURING HOSPITALIZATION: The patient initially came to ER with complaints of chest pain and palpitations. He also had blurry vision and feeling dizzy. He was found to be in atrial fibrillation with RVR on arrival. This spontaneously got resolved in the ER. He has had troponin trending done, which was negative. Nuclear stress test done showed no evidence of reversible ischemia. The patient has had consultation with Dr. Jose Ramon Thomas. He has had electrophysiology studies done, which I have described above. He has had ablation done and has remained in sinus rhythm. He is placed on Xarelto and needs to continue Lopressor as prescribed. The patient needs to follow up with Dr. Jose Ramon Thomas as advised. He is ambulating and eating well prior to discharge. Please see a [id number] documentation for the day of discharge on [employer]. Job ID: [id number] [facility]
--- NOTE | 2018-08-20 21:07 | EKG ---
Test Reason : Blood Pressure : / mmHG Vent. Rate : 086 BPM Atrial Rate : 086 BPM P-R Int : 166 ms QRS Dur : 078 ms QT Int : 354 ms P-R-T Axes : 066 011 031 degrees QTc Int : 423 ms Normal sinus rhythm Normal ECG When compared with ECG of 08-FEB-2018 09:53, No significant change was found Confirmed by Lanie PORRAS ([id number]) on 08/20/2018 9:07:09 PM Referred By: IRVING Confirmed By:Lanie PORRAS
--- NOTE | 2018-08-20 21:21 | EKG ---
Test Reason : POST OP Blood Pressure : / mmHG Vent. Rate : 082 BPM Atrial Rate : 082 BPM P-R Int : 160 ms QRS Dur : 074 ms QT Int : 370 ms P-R-T Axes : 030 111 -29 degrees QTc Int : 432 ms Normal sinus rhythm Left posterior fascicular block T wave abnormality, consider inferolateral ischemia Abnormal ECG When compared with ECG of 16-AUG-2018 13:34, (Unconfirmed) Left posterior fascicular block is now Present T wave inversion now evident in Inferior leads T wave inversion now evident in Lateral leads Confirmed by Lanie PORRAS ([id number]) on 08/20/2018 9:20:58 PM Referred By: Confirmed By:Lanie PORRAS
--- NOTE | 2018-08-20 21:23 | EKG ---
Test Reason : Blood Pressure : / mmHG Vent. Rate : 107 BPM Atrial Rate : 107 BPM P-R Int : 164 ms QRS Dur : 080 ms QT Int : 330 ms P-R-T Axes : 058 005 072 degrees QTc Int : 440 ms Sinus tachycardia Otherwise normal ECG When compared with ECG of 18-AUG-2018 18:21, (Unconfirmed) Left posterior fascicular block is no longer Present Nonspecific T wave abnormality has replaced inverted T waves in Inferior leads T wave inversion no longer evident in Lateral leads Confirmed by Lanie PORRAS ([id number]) on 08/20/2018 9:22:30 PM Referred By: RENETTA Confirmed By:Lanie PORRAS
== END 2018-08-19 09:21 | disposition home or self-care (01) ==
LOC: SCSER 09:38 → 2SW 11:00
PROVIDERS: ADMIT Internal Medicine; ATTEND Internal Medicine
PROC: 4A023FZ Measurement of Cardiac Rhythm, Percutaneous Approach (ICD-10-PCS; principal; 2018-08-19)
PROC: 4A0234Z Measurement of Cardiac Electrical Activity, Percutaneous Approach (ICD-10-PCS; 2018-08-19)
PROC: 02583ZZ Destruction of Conduction Mechanism, Percutaneous Approach (ICD-10-PCS; 2018-08-19)
PROC: 02K83ZZ Map Conduction Mechanism, Percutaneous Approach (ICD-10-PCS; 2018-08-19)
DX: I48.0 Paroxysmal atrial fibrillation (principal); I48.4 Atypical atrial flutter; R07.89 Other chest pain; I10 Essential (primary) hypertension; E78.5 Hyperlipidemia, unspecified; I44.5 Left posterior fascicular block; Z98.890 Other specified postprocedural states; Z79.01 Long term (current) use of anticoagulants; Z79.82 Long term (current) use of aspirin; Z79.899 Other long term (current) drug therapy
CPT/HCPCS: 36415; 71045; 76942; 78452; 80048; 80053; 82550; 84484; 85025; 85347; 93005; 93010; 93017; 93306; 93613; 93623; 93656; 93662; 94760; 96372; 96374; 96375; 96376; A9500; C1731; C1732; C1759; C1769; G0378; J0131; J1644; J1650; J2405; J2720; J3010

== ENCOUNTER 2018-08-25 13:14 | Emergency (ER) | payer BC ==
[2018-08-25 14:07] LABS: #Basophils 0.1 thou/uL (0.0-0.2); #Eosinphils 0.1 thou/uL (0.0-0.7); #Lymphocytes 1.7 thou/uL (1.20-3.40); #Monocytes 0.9 thou/uL (0.11-0.59); #Neutrophils 8.9 thou/uL (1.40-6.50); %Basophils 0.6 % (0.0-1.0); %Eosinophils 0.5 % (0.0-10.0); %Lymphocytes 14.8 % (21.0-51.0); %Monocytes 7.8 % (0.0-10.0); %Neutrophils 76.4 % (42.0-75.0); Hemoglobin 18.6 g/dL (14.0-18.0); Mean Corpuscular HGB CONC 33.1 g/dL (32.0-36.0); Mean Corpuscular Hemoglobin 30.8 pg (27.0-31.0); Mean Corpuscular Volume 93.1 fL (78.0-98.0); Mean Platelet Volume 7.4 fL (7.4-10.4); Platelet Count 298 thou/uL (130-400); RBC Distribution Width 13.3 % (11.5-14.5); Red Blood Cell (RBC) Count 6.06 mill/uL (4.70-6.10); White Blood Cell (WBC) Count 11.6 thou/uL (4.8-10.8)
--- NOTE | 2018-08-25 14:25 | RAD ---
XR Chest 1 View Portable HISTORY: Chest pain COMPARISON: 08/26/2018 FINDINGS: The heart size is normal. The lungs are well expanded without focal areas of consolidation, pneumothorax or pleural effusions. IMPRESSION: No radiographic evidence of acute cardiopulmonary process.
[2018-08-25 14:32] LABS: ALT (SGPT) 32 U/L (8-55); AST (SGOT) 31 U/L (5-34); Albumin 4.1 g/dL (3.5-5.0); Alkaline Phosphatase 80 U/L (40-150); Anion Gap 16 mmol/L (10-20); BUN (Urea Nitrogen) 17 mg/dL (8.4-25.7); Bilirubin, Total 0.8 mg/dL (0.2-1.2); CK (CPK) 40 U/L (30-200); Calc. Creatinine Clearance 0 mL/min (70-130); Calcium 9.8 mg/dL (7.8-10.44); Carbon Dioxide 22 mmol/L (22-29); Chloride 105 mmol/L (98-107); Estimated GFR-MDRD 62; Globulin 3.4 g/dL (2.4-3.5); Glucose 84 mg/dL (70-105); Potassium 5.1 mmol/L (3.5-5.1); Protein, Total 7.5 g/dL (6.0-8.3); Sodium 138 mmol/L (136-145)
[2018-08-25 14:48] LABS: CKMB 0.5 ng/mL (0-6.6)
[2018-08-25 17:19] LABS: Troponin I 0.079 ng/mL (< 0.028)
--- NOTE | 2018-08-28 09:40 | EKG ---
Test Reason : Blood Pressure : / mmHG Vent. Rate : 096 BPM Atrial Rate : 096 BPM P-R Int : 154 ms QRS Dur : 076 ms QT Int : 324 ms P-R-T Axes : 048 -04 053 degrees QTc Int : 409 ms Normal sinus rhythm Normal ECG Confirmed by RAYMON CARBONE ([id number]), editor managing director AMANDA CARNEY ([id number]) on 08/28/2018 9:40:17 AM Referred By: Confirmed By:RAYMON CARBONE
== END 2018-08-25 17:41 | disposition home or self-care (01) ==
LOC: ERS 13:14
DX: R07.9 Chest pain, unspecified (principal); I48.91 Unspecified atrial fibrillation; E78.5 Hyperlipidemia, unspecified; I10 Essential (primary) hypertension; Z79.899 Other long term (current) drug therapy
CPT/HCPCS: 36416; 71045; 80053; 82550; 82553; 84484; 85025; 93005; 96360